=== PATIENT | female | born 1985 | race African-American/Black ===

== ENCOUNTER 2022-04-13 17:02 | Emergency (ER) | payer OTHER ==
[2022-04-13 17:21] VITALS: BP 117/80; PULSE 88; RESP 16; TEMP 97.8; BMI 33.9
[2022-04-13] MEDS ORDERED: ONDANSETRON *ODT* 4 MG TABLET SL ONE (21:41)
[2022-04-14 02:14] LABS: PH,URINE 5.5 (5.0-8.0); URINE APPEARANCE CLOUDY; URINE BILIRUBIN NEGATIVE (NEGATIVE); URINE COLOR YELLOW; URINE GLUCOSE (UA) NEGATIVE (NEGATIVE); URINE KETONE 1+ (NEGATIVE); URINE LEUK ESTERASE NEGATIVE (NEGATIVE); URINE NITRITE NEGATIVE (NEGATIVE); URINE PROTEIN TRACE (NEGATIVE)
[2022-04-14 02:16] LABS: HCG,QUALITATIVE URINE Negative
== END 2022-04-14 02:37 | disposition home or self-care (01) ==
LOC: JER 17:02
DX: R05.1 Acute cough (principal); R11.0 Nausea; Z32.02 Encounter for pregnancy test, result negative
CPT/HCPCS: 81003; 84703; 99283-25

== ENCOUNTER 2022-12-31 07:55 | Emergency (ER) | payer OTHER ==
[2022-12-31 08:07] VITALS: RESP 18; BMI 32.3
[2022-12-31] MEDS ORDERED: ONDANSETRON 4 MG TABLET PO ONE (09:13)
[2022-12-31] MEDS ORDERED: ACETAMINOPHEN 500 MG TABLET (FP) PO ONE (09:13)
[2022-12-31] MEDS ORDERED: ACETAMINOPHEN 325 MG TABLET (FP) ONE (09:30)
[2022-12-31] MEDS ORDERED: ONDANSETRON *ODT* 4 MG TABLET ONE (09:30)
[2022-12-31 10:47] LABS: EPI CELLS >36 /uL (0-25.1); HYALINE CASTS 3 /uL (0-3.1); URINE APPEARANCE CLOUDY; URINE BACTERIA 3145 /uL (0-1359); URINE BILIRUBIN NEGATIVE (NEGATIVE); URINE COLOR YELLOW; URINE GLUCOSE (UA) NEGATIVE (NEGATIVE); URINE KETONE TRACE (NEGATIVE); URINE LEUK ESTERASE 1+ (NEGATIVE); URINE NITRITE NEGATIVE (NEGATIVE); URINE PROTEIN NEGATIVE (NEGATIVE); URINE WBC 48 /uL (0-25.8)
[2022-12-31 10:48] LABS: HCG,QUALITATIVE URINE Negative
[2022-12-31 10:58] LABS: URINE CRYSTALS NEGATIVE /hpf; URINE RBC 42.9 /uL (0-23.9)
[2022-12-31 11:59] VITALS: BP 110/72; PULSE 80; TEMP 98
== END 2022-12-31 11:59 | disposition home or self-care (01) ==
LOC: JER 07:55
DX: R11.0 Nausea (principal); R51.9 Headache, unspecified; R50.9 Fever, unspecified; R10.13 Epigastric pain; R07.0 Pain in throat; N39.0 Urinary tract infection, site not specified; A64 Unspecified sexually transmitted disease
CPT/HCPCS: 36415; 81003; 84703; 87491; 87591; 87651; 99283-25

== ENCOUNTER 2023-01-23 19:47 | Emergency (ER) | payer OTHER ==
[2023-01-23 19:59] VITALS: BP 130/80; PULSE 91; RESP 20; TEMP 98.5; BMI 33.2
[2023-01-23] MEDS ORDERED: ACETAMINOPHEN 500 MG TABLET (FP) PO ONE (20:46)
[2023-01-23] MEDS ORDERED: ACETAMINOPHEN 325 MG TABLET (FP) ONE (20:53)
[2023-01-23] MEDS ORDERED: FLUCONAZOLE 150 MG TABLET PO ONE ×2 (21:27→21:32)
[2023-01-23 21:40] LABS: PH,URINE 7.5 (5.0-8.0); URINE APPEARANCE TURBID; URINE BILIRUBIN NEGATIVE (NEGATIVE); URINE COLOR YELLOW; URINE GLUCOSE (UA) NEGATIVE (NEGATIVE); URINE KETONE TRACE (NEGATIVE); URINE LEUK ESTERASE NEGATIVE (NEGATIVE); URINE NITRITE NEGATIVE (NEGATIVE); URINE PROTEIN NEGATIVE (NEGATIVE)
== END 2023-01-23 22:43 | disposition home or self-care (01) ==
LOC: JER 19:47
DX: R10.31 Right lower quadrant pain (principal); R39.15 Urgency of urination; L29.2 Pruritus vulvae; N89.8 Other specified noninflammatory disorders of vagina; B37.31 Acute candidiasis of vulva and vagina
CPT/HCPCS: 81003; 84703; 87086; 99283-25

== ENCOUNTER 2023-02-22 16:54 | Emergency (ER) | payer OTHER ==
[2023-02-22 17:00] VITALS: BP 108/72; PULSE 78; RESP 18; TEMP 98.3; BMI 32.3
[2023-02-22 18:43] LABS: BASO % 0.4 % (0-2.0); EOS % 0.2 % (0-4.5); HEMATOCRIT 42.3 % (32.4-45.2); HEMOGLOBIN 14.4 GM/dL (10.7-15.3); LYMPH % 24.3 % (8-40); MCH 31.7 pg (25.7-33.7); MCHC 34.1 g/dl (32.0-36.0); MEAN PLT VOLUME 7.6 fl (7.5-11.1); MONO % 7.1 % (3.8-10.2); PLATELET COUNT 257 10^3/uL (134-434); RBC 4.55 M/mm3 (3.60-5.2); RDW 14.5 % (11.6-15.6); WHITE BLOOD COUNT 8.5 K/mm3 (4.0-10.0)
[2023-02-22 18:53] LABS: POTASSIUM 4.1 mmol/L (3.5-5.1)
[2023-02-22 18:55] LABS: CALCIUM 8.9 mg/dL (8.5-10.1)
[2023-02-22 18:56] LABS: ALBUMIN 3.7 g/dl (3.4-5.0); BLOOD UREA NITROGEN 3.2 mg/dL (7-18)
[2023-02-22 18:59] LABS: CREATININE 0.7 mg/dL (0.55-1.3)
[2023-02-22 19:00] LABS: TOT PROT 6.8 g/dl (6.4-8.2)
[2023-02-22 19:01] LABS: BILIRUBIN,TOTAL 0.4 mg/dL (0.2-1)
[2023-02-22 19:02] LABS: THROAT:GRP A STREP NOT DETECTED (NOTDETECTED)
== END 2023-02-22 20:10 | disposition home or self-care (01) ==
LOC: JER 16:54
DX: R42 Dizziness and giddiness (principal); R05.9 Cough, unspecified; Z20.822 Contact with and (suspected) exposure to COVID-19
CPT/HCPCS: 0241U-QW; 36415; 70450-TC; 71046-TC-FY; 80053; 84484; 84703; 85025; 87651; 93005; 93010; 99285-25

== ENCOUNTER 2023-07-10 17:39 | Emergency (ER) | payer OTHER ==
[2023-07-10 17:49] VITALS: BP 106/71; PULSE 92; RESP 19; TEMP 98.9; BMI 29.5
[2023-07-10 20:17] LABS: BASO % 0.3 % (0-2.0); EOS % 1.1 % (0-4.5); HEMATOCRIT 39.8 % (32.4-45.2); HEMOGLOBIN 13.3 GM/dL (10.7-15.3); LYMPH % 38.5 % (8-40); MCH 31.1 pg (25.7-33.7); MCHC 33.5 g/dl (32.0-36.0); MEAN CELL VOLUME 92.9 fl (80-96); MEAN PLT VOLUME 7.8 fl (7.5-11.1); MONO % 5.6 % (3.8-10.2); NEUT % 54.5 % (42.8-82.8); PLATELET COUNT 238 10^3/uL (134-434); RBC 4.28 M/mm3 (3.60-5.2); RDW 14.6 % (11.6-15.6); WHITE BLOOD COUNT 7.8 K/mm3 (4.0-10.0)
[2023-07-10 20:19] LABS: EPI CELLS >36 /uL (0-25.1); HYALINE CASTS 1 /uL (0-3.1); URINE APPEARANCE CLEAR; URINE BACTERIA 821 /uL (0-1359); URINE BILIRUBIN NEGATIVE (NEGATIVE); URINE COLOR YELLOW; URINE GLUCOSE (UA) NEGATIVE (NEGATIVE); URINE KETONE NEGATIVE (NEGATIVE); URINE LEUK ESTERASE TRACE (NEGATIVE); URINE NITRITE NEGATIVE (NEGATIVE); URINE PROTEIN NEGATIVE (NEGATIVE); URINE RBC 25 /uL (0-23.9); URINE WBC 34 /uL (0-25.8)
[2023-07-10 20:44] LABS: POTASSIUM 3.9 mmol/L (3.5-5.1)
[2023-07-10 20:48] LABS: BLOOD UREA NITROGEN 7.7 mg/dL (7-18); CALCIUM 8.8 mg/dL (8.5-10.1)
[2023-07-10 20:52] LABS: CREATININE 0.9 mg/dL (0.55-1.3)
[2023-07-10 21:02] LABS: SYPHILIS W/ RPR CONF NON-REACTIVE (NONREACTIVE)
[2023-07-10 21:31] LABS: HIV INTERPRETATION NEGATIVE (NEGATIVE)
== END 2023-07-10 20:21 | disposition home or self-care (01) ==
LOC: JER 17:39 → JERFT 17:39
DX: J02.9 Acute pharyngitis, unspecified (principal); R51.9 Headache, unspecified; R53.83 Other fatigue; F41.9 Anxiety disorder, unspecified; B34.9 Viral infection, unspecified; Z20.2 Contact with and (suspected) exposure to infections with a predominantly sexual mode of transmission; U07.1 COVID-19
CPT/HCPCS: 0241U-QW; 36415; 71046-TC-FY; 80048; 81003; 85025; 86780; 87086; 87389; 87491; 87591; 87651; 87661; 99283-25

== ENCOUNTER 2023-07-29 14:26 | Emergency (ER) | payer OTHER ==
[2023-07-29 14:38] VITALS: TEMP 97.8; BMI 29.8
[2023-07-29] MEDS: SODIUM CHLORIDE 0.9% 500 ML INFUS.BAG IV ONE (15:54)
[2023-07-29 16:09] LABS: BASO % 0.4 % (0-2.0); EOS % 0.5 % (0-4.5); HEMATOCRIT 41.2 % (32.4-45.2); HEMOGLOBIN 13.5 GM/dL (10.7-15.3); LYMPH % 22.7 % (8-40); MCH 30.8 pg (25.7-33.7); MCHC 32.9 g/dl (32.0-36.0); MEAN CELL VOLUME 93.8 fl (80-96); MEAN PLT VOLUME 7.8 fl (7.5-11.1); MONO % 6.7 % (3.8-10.2); NEUT % 69.7 % (42.8-82.8); PLATELET COUNT 261 10^3/uL (134-434); RBC 4.39 M/mm3 (3.60-5.2); RDW 14.5 % (11.6-15.6); WHITE BLOOD COUNT 9.2 K/mm3 (4.0-10.0)
[2023-07-29 16:25] LABS: INR 0.88 (0.83-1.09); PROTHROMBIN TIME (PATIENT) 10.2 SEC (9.7-13.0)
[2023-07-29 16:27] LABS: ACTIVATED PTT 31.2 SECONDS (25.2-36.5)
[2023-07-29 16:49] LABS: CHLORIDE 111 mmol/L (98-107); SODIUM 141 mmol/L (136-145)
[2023-07-29 16:51] LABS: ALBUMIN 3.8 g/dl (3.4-5.0); ANION GAP 5 mmol/L (4-13); BLOOD UREA NITROGEN 10.6 mg/dL (7-18); CALCIUM 9.1 mg/dL (8.5-10.1); CO2 25 mmol/L (21-32); GLUCOSE,RANDOM 98 mg/dL (74-106); MAGNESIUM 2.2 mg/dL (1.8-2.4)
[2023-07-29 16:54] LABS: CREATININE 0.7 mg/dL (0.55-1.3); SGOT/AST 8 U/L (15-37); SGPT/ALT 14 U/L (13-61)
[2023-07-29 16:56] LABS: BILIRUBIN,TOTAL 0.2 mg/dL (0.2-1); TOT PROT 6.9 g/dl (6.4-8.2)
[2023-07-29 16:57] LABS: ALK PHOS 21 U/L (45-117)
[2023-07-29 17:45] VITALS: BP 145/89; PULSE 70; RESP 17
== END 2023-07-29 18:44 | disposition home or self-care (01) ==
LOC: JER 14:26
DX: R55 Syncope and collapse (principal); R42 Dizziness and giddiness; Z20.822 Contact with and (suspected) exposure to COVID-19
CPT/HCPCS: 0241U-QW; 36415; 71046-TC-FY; 80053; 82550; 82553; 82962; 83735; 84484; 84703; 85025; 85610; 85730; 93005; 93010; 99285-25